=== PATIENT | female | born 1955 | race Caucasian/White ===

== ENCOUNTER 2020-05-20 17:29 | Emergency (ER) | payer MEDICAID ==
[~2020-05-20] VITALS: Ht 170.2 cm; Wt 78.0 kg
[2020-05-20 17:33] VITALS: BP 102/56
[2020-05-20] MEDS ORDERED: FUROSEMIDE 40MG TABLET PO ONE (21:30)
[2020-05-20] MEDS ORDERED: IBUPROFEN 600MG TABLET PO ONE (21:30)
[2020-05-21 00:12] LABS: CHLORIDE 106 mEq/L (98-107)
[2020-05-21 00:13] LABS: BASOPHILS % 0.6 % (0.0-2.0); EOSINOPHILS % 5.2 % (0.0-5.0); HEMATOCRIT. 40.4 % (36.0-48.0); HEMOGLOBIN. 13.5 g/dL (12.0-16.0); LYMPHOCYTES % 11.5 % (20.0-50.0); MEAN CORPUSCULAR VOLUME 87.2 fL (81.0-99.0); MEAN PLATELET VOLUME 8.5 fl (7.4-10.4); MONOCYTES % 8.3 % (2.0-8.0); NEUTROPHILS % 74.4 % (40.0-76.0); PLATELET 89 x1000/uL (130-400); RED BLOOD CELL COUNT 4.64 mill/uL (4.2-5.4); RED CELL DISTRIBUTION WIDTH 17.6 % (11.6-14.6)
[2020-05-21] MEDS ORDERED: IBUPROFEN 600MG TABLET PO NR (02:15)
[2020-05-21] MEDS ORDERED: FUROSEMIDE 40MG TABLET PO NR (02:15)
== END 2020-05-21 02:47 | disposition home or self-care (01) ==
LOC: ER 17:29
DX: I11.0 Hypertensive heart disease with heart failure (principal); I50.9 Heart failure, unspecified; Z86.73 Personal history of transient ischemic attack (TIA), and cerebral infarction without residual deficits; Z98.890 Other specified postprocedural states
CPT/HCPCS: 36415; 71045; 80048; 83880; 84484; 85025; 93970; 99285